=== PATIENT | female | born 1960 | race Caucasian/White ===

== ENCOUNTER 2017-12-17 08:55 | Emergency (ER) | payer BC, OTHER ==
[~2017-12-17] VITALS: Ht 165.1 cm; Wt 82.9 kg
[~2017-12-17 08:55] MED LIST: ALPR0.25 PO; NAPR500T2 PO; RISE1TAB13 PO
[2017-12-17 09:04] VITALS: BP 129/65; PULSE 95; RESP 16; TEMP 97.8; O2SAT 97
[2017-12-17] MEDS ORDERED: ORPHENADRINE INJ 60 MG/2 ML AMP IM ONE (10:45)
[2017-12-17] MEDS ORDERED: KETOROLAC TROMETHAMINE 60 MG/2 ML (IM) VIAL IM ONE (10:45)
[2017-12-17] MEDS ORDERED: NORC5TAB PO (10:52)
[2017-12-17] MEDS ORDERED: CYCL10TA PO (10:52)
[2017-12-17] MEDS ORDERED: IBUP1TAB7 PO (10:52)
--- NOTE | 2017-12-17 10:56 | PD ---
HPI Chief Complaint: Musculoskeletal Complaint Time Seen by Provider: 10:38 Travel History International Travel<30 days: No Contact w/Intl Traveler<30days: No Traveled to known affect area: No History of Present Illness HPI 57-year-old female here for evaluation of left buttocks pain that radiates down into the left leg times one day. She's had similar episodes in the past history of sciatica. She denies injury or trauma. She denies paresthesias or weakness of the extremity. Symptom severity is moderate. Unrelieved by OTC meds. Denies fever, saddle anesthesia, paresthesia or weakness in extremities, incontinence. PFSH Past Medical History Medical History: Denies Significant Hx Musculoskeletal: Yes (OSTEOPROSIS/OSTEOPNEA) Menopausal: Yes Past Surgical History Tonsillectomy: Yes Other Surgery: Yes (VULVECTOMY) Social History Alcohol Use: Yes (8-10 BEERS WEEK) Tobacco Use: No Substance Use: No Allergies-Medications (Allergen,Severity, Reaction): Coded Allergies: No Known Allergies (Unverified Adverse Reaction, Unknown, 12/17/17) Reported Meds & Prescriptions Reported Meds & Active Scripts Active Naproxen 500 Mg Tab 500 Mg PO BID Alprazolam 0.25 Mg Tab 0.25 Mg PO BID 30 Days Risedronate 150 Mg Tab 150 Mg PO Q30D Review of Systems Except as stated in HPI: all other systems reviewed are Neg General / Constitutional: No: Fever Physical Exam Narrative GENERAL: Alert and well-appearing 57-year-old female. Walking with mild limp SKIN: Warm and dry. HEAD: Normocephalic. EYES: No injection or drainage. NECK: Supple, trachea midline. No JVD or lymphadenopathy. CARDIOVASCULAR: Regular rate and rhythm. RESPIRATORY: Breath sounds equal bilaterally. No accessory muscle use. GASTROINTESTINAL: Abdomen soft, non-tender, nondistended. MUSCULOSKELETAL: No cyanosis, or edema. +TTP left buttocks over the SI joint. Reported pain radiating from the site all the way down the lateral aspect of the legs knee. Normal sensation distally. 2+ distal pulses. Brisk cap refill. Patient is ambulatory with a steady gait. Positive straight leg raise on the left. No cervical, thoracic, lumbar spine tenderness. BACK: Nontender without obvious deformity. No CVA tenderness. Data Data Last Documented VS Vital Signs Date Time Temp Pulse Resp B/P (MAP) Pulse Ox O2 Delivery O2 Flow Rate FiO2 12/17/17 09:04 97.8 95 16 129/65 (86) 97 Orders Orders Ketorolac Inj (Toradol Inj) (12/17/17 10:45) Orphenadrine Inj (Norflex Inj) (12/17/17 10:45) MDM Medical Decision Making Medical Screen Exam Complete: Yes Emergency Medical Condition: Yes Differential Diagnosis Sciatica, radiculopathy, lumbar strain Narrative Course 87-year-old female here with sciatica pain. She is at similar previous episodes in the past. She has normal neurologic exam. Patient will be treated with NSAIDs, muscle relaxers, pain medication. Diagnosis Primary Impression: Sciatica Qualified Codes: M54.32 - Sciatica, left side Referrals: Primary Care Physician Additional Instructions: Avoid heavy lifting or strenuous activity. Take ibuprofen directed Flexeril as a muscle spasm. Bally as needed for severe pain. Scripts Hydrocodone-Acetaminophen (Bally) 5 Mg-325 Mg Tab 1 TAB PO Q6H Y for PAIN, #10 TAB 0 Refills Prov: Celia Sosa 12/17/17 Cyclobenzaprine (Flexeril) 10 Mg Tab 10 MG PO TID for Muscle Spasm, #14 TAB 0 Refills Prov: Celia Sosa 12/17/17 Ibuprofen (Ibuprofen) 800 Mg Tab 800 MG PO Q6HR Y for PAIN, #40 TAB 0 Refills Prov: Celia Sosa 12/17/17 Disposition: 01 DISCHARGE HOME Condition: Stable Celia Sosa Dec 17, 2017 10:56
== END 2017-12-17 11:11 | disposition home or self-care (01) ==
LOC: PHED 08:55 → PHEFT 11:11
DX: M54.32 Sciatica, left side (principal); M81.0 Age-related osteoporosis without current pathological fracture; Z79.899 Other long term (current) drug therapy
CPT/HCPCS: 96372; 99283; J1885; J2360